=== PATIENT | male | born 1955 | race Caucasian/White ===

== ENCOUNTER 2018-01-26 06:29 | Day surgery (SDC) | payer MEDICARE ==
[~2018-01-26] VITALS: Ht 185.4 cm; Wt 112.0 kg
[~2018-01-26 06:29] MED LIST: ARIP1TAB87 PO; ATOR40TA49 PO; CIPR-9 PO; LAMI25TA3 PO; LEVO500T3 PO; LISI20 PO; LITH1TAB3 PO; METO25 PO; METO50 PO; REST30CA PO; TERB250
[2018-01-26] MEDS ORDERED: IOHEXOL 350 MG/ML 100 ML BTL (for Cath Lab) OTHER ONE (06:30)
[2018-01-26 07:14] VITALS: BP 159/91; PULSE 63; RESP 18; O2SAT 94
[2018-01-26] MEDS ORDERED: LITH300C2 PO (07:20)
[2018-01-26] MEDS ORDERED: ARIP1TAB13 PO (07:20)
[2018-01-26] MEDS ORDERED: VENTAER INH (07:20)
[2018-01-26] MEDS ORDERED: ATOR40TA16 PO (07:20)
[2018-01-26] MEDS ORDERED: ASPI-516 CHEW (07:20)
[2018-01-26] MEDS ORDERED: METO25TA3 PO (07:20)
[2018-01-26] MEDS ORDERED: FOSI10TA PO (07:20)
[2018-01-26] MEDS ORDERED: LITH150C PO (07:20)
[2018-01-26] MEDS ORDERED: METO50TA PO (07:20)
[2018-01-26] MEDS ORDERED: METF500T PO (07:20)
[2018-01-26] MEDS ORDERED: PHEN37.52 (07:20)
[2018-01-26] MEDS ORDERED: SODIUM CHLOR 0.9% 1000 ML INJ 1,000 ML IV SCH (07:30)
[2018-01-26] MEDS ORDERED: HEPARIN-NS/PF FLUSH BAG 2,000 ML IV FLUSH ONE (08:02)
[2018-01-26] MEDS ORDERED: LIDOCAINE HCL 1% PF 30 ML VIAL ONE (08:09)
[2018-01-26] MEDS ORDERED: MIDAZOLAM HCL 2 MG/2 ML VIAL ONE (08:11)
[2018-01-26] MEDS ORDERED: ONDANSETRON HCL 4 MG/2 ML VIAL IV PUSH PRN (09:15)
[2018-01-26] MEDS ORDERED: MISC INFORMATION XX ONE (09:15)
[2018-01-26] MEDS ORDERED: ATROPINE SULFATE 1 MG/ML VIAL IV PUSH PRN (09:15)
[2018-01-26] MEDS ORDERED: SODIUM CHLOR 0.9% 250 ML INJ 250 ML IV PRN (09:15)
--- NOTE | 2018-01-26 09:15 | CATHPROC ---
[facility] HIS Report Study Information Study Number Admission Scheduled Start Study Start [id number] Jan 26 2018 6:29AM 01/26/2018 Jan 26 2018 8:00AM [place] [facility]iac Catheterization Admit Source Facility Department Other [facility] - Automation Technologist Physician and Clinical Staff Initial Charles Mora Oracle Reports Developer Shailesh Rush RN Oracle Reports Developer Aaliyah Benitez BSN Recorder Corrie Hu,RT(R) Scrub Jenny Fisher,RT(R) Procedures Performed Procedure Location (Site) Vessel Name Coronary Angiograms LCA Left Coronary Coronary Angiograms RCA Right Coronary L Heart Cath Equipment Time Infant Babysitter Description Size Mfg Part Number Used/Scraped TRANSDUCER, TRUWAVE [id number] 08:12 FINN QUINTANILLA * Used W/STOCKCOCK *[id number] *[id number] [id number] *[id number] *[id number] 08:59 DAIG/[employer]. JASMIN MEDICAL ANGIOSEAL, FR6 VIP FR 6 Used *[id number] 08:12 [employer] PACK, CCL CUSTOM * Used *[id number] 08:12 [employer] PACER PEN, SKIN DUAL W/ RULER * Used *[id number] 08:12 [employer] SHEATH, FR6.5 PRELUDE 11CM FR 6.5 038ACT Used *[id number] 08:12 [employer] WIRE, 3MMJ .035 180CM 180CM Used *[id number] 08:12 NAMIC MANIFOLD, 4 PORT * Used *[id number] 08:12 NYCOMED OMNIPAQUE, 350 MG, 100ML 100ML [id number] Used [id number] 08:12 [employer] BLANKET,WARM AIR CCL * Used *[id number] History: Current Medications Medication Dosage/Unit Route Frequency Last Date/Time Taken ASA Beta Cristiano Statins (any) History: Allergies Allergy Reaction No Known Allergies History: Risk Factors Family History of Hypertension Dyslipidemia Premature CAD Yes Yes Yes Prior PCI Prior PCIDate Yes 01/10/2008 Diabetes Diabetes Therapy Yes Oral History: Stress Tests Stress or Imaging Studies Performed Yes Standard Exercise Stress Test No Stress Echo No Stress Test SPECT Stress Test SPECT Result Stress Test SPECT Ischemia Risk/Extent Yes Positive Intermediate Stress Test CMR No Cardiac CTA Coronary Calcium Score No No History: Other Current Smoker Method Packs a Day Years Used Pack Years Yes Cigarettes 2 43 86 Labs Hgb (g/dl) Hct (%) WBC (l/cumm) Platelets (thousands) 11.60-17.00 35.00-51.00 4.00-11.00 150.00-450.00 13.2 39.5 10.8 257 Glucose (mg/dl) BUN (mg/dl) Creatinine (mg/dl) BUN:Creatinine (1:x) 74.00-106.00 7.00-18.00 0.50-1.30 10.00-20.00 113 27 1.3 20.8 Na (meq/l) K (meq/l) 136.00-145.00 3.50-5.10 138 5.2 INR (PTT:PT) 0.90-1.10 0.9 CPK-MB (ng/ML) 0.50-3.60 Not Drawn Medication Medication Total Dose (Bolus/Oral) Medication Total Dosage/Unit 1% XYLOCAINE 20 mL VERSED 2 mg Medications (Bolus/Oral) Medication Time Given Dosage/Unit Administered By Reason VERSED 01/26/2018 8:24:35 AM 2 mg Shailesh Rush 2 mg VERSED given in lab by Shailesh Rush, RN in Left Hand via Peripheral IV. Ordered by Alfonso Atkins. 1% XYLOCAINE 01/26/2018 8:29:26 AM 20 mL Charles Atkins 20 mL 1% XYLOCAINE given in lab by Charles Atkins in Right Groin via Subcutaneous. Medication (Drip) Medication Time Given Dosage/Unit Concentration/Unit Diluent (ml) Solution IV Solutions 01/26/2018 8:00:47 AM 50 mL (IV) NaCl .9 IV Solutions given in lab by Aaliyah Benitez BSN in Left Hand via Peripheral IV. Pump/Drip Flow using NaCl .9. Initial Case Assessment Cardiovascular HR Rhythm NIBP Chest Pain 62 SR 125/79 0 Edema Present Skin color Skin Mild Normal Warm Dry Circulatory - Right Pulses Dorsalis Pedis Femoral 1 2 Scale (0,1,2,3,4,d) Circulatory - Left Pulses Dorsalis Pedis Femoral 1 2 Scale (0,1,2,3,4,d) Neurological State Oriented to time-place- Alert Moves all extremities person Respiration - General Respiration Rate SpO2 (%) (B/min) 8 96 Chronological Log Time Study Chronological Log 8:00:33 Patient arrived via Bed. 8:00:35 Patient Name, D.O.B, / Armband Verified By R.N. 8:00:36 Consent signed by the physician and the patient and verified by the Automation Technologist staff. 8:00:36 Pre-op and post- op instructions given; patient acknowledges understanding of instructions. 8:00:37 Verbal Stimulation=2 Physical Stimulation=2 Airway=2 Respiration=2 TOTAL=8. (0=absent, 1=li mited, 2=present) 8:00:38 Presedation assessment performed by Automation Technologist RN. 8:00:42 Patient has been NPO for More than 6Hrs. 8:00:43 Skin Breakdown- none per pt 8:00:44 Patient Warmer Placed on the Table. 8:00:46 Dee Prominences Protected 8:00:46 A # 20 IV was noted in the Hand (left). Grade = 0 8:00:47 IV Solutions given in lab by Aaliyah Benitez BSN in Left Hand via Peripheral IV. Pump/ Drip Flow using NaCl .9. 8:00:54 History and physical on the chart or being dictated. Assessment: Initial Case, HR=62 BPM, Rhythm=SR, CFMH=588/79 mmhg, Chest Pain=0, Edema=Mild, Col or=Normal, Skin = Warm, Dry Right Pulses: Fawad Ped=1, Femoral=2 8:00:55 Left Pulses: Fawad Ped=1, Femoral=2 Neurological: State=Alert, Ox3, ABRAHAM Respiration: Resp=8 B/min, SpO2=96 % Vitals capture started with the following parameters, Patient=Adult, Interval=5 min, Initial Pre wrrtr=105 mmHg, 8:03:43 Deflation Rate=5 mmHg, Cuff placed on Right Ankle 8:04:30 HR=69 bpm, RHFN=640/85 mmhg, SpO2=96.0 %, Resp=10 B/min 8:09:18 HR=62 bpm, CMCM=645/79 mmhg, SpO2=95.0 %, Resp=8 B/min 8:12:06 Reference ECG taken 8:12:57 Bilateral groins prepped with 2% chlorhexidine, and draped after a 3 minute waiting time. 8:14:21 HR=62 bpm, FKIL=091/83 mmhg, SpO2=96.0 %, Resp=18 B/min 8:14:48 MD arrived. 8:19:19 Pressure channel 1 zeroed. 8:19:21 HR=66 bpm, VXWL=607/79 mmhg, SpO2=97.0 %, Resp=18 B/min 8:24:22 HR=75 bpm, NUTZ=019/86 mmhg, SpO2=95.0 %, Resp=19 B/min Time Out. Correct patient, correct procedure, correct physician, power injector loaded, or not l oaded with contrast with 8:24:30 surgical team present. Time Out Concurred by MD and individual staff in procedure. 8:24:35 2 mg VERSED given in lab by Shailesh Rush RN in Left Hand via Peripheral IV. Ordered by Charles Metcalf. 8:24:53 Case Start 8:29:26 20 mL 1% XYLOCAINE given in lab by Charles Atkins in Right Groin via Subcutaneous. 8:29:27 HR=73 bpm, AIKF=293/72 mmhg, SpO2=93.0 %, Resp=24 B/min A JL 4.0 INFINITI CATHETER FR 6 was advanced over a wire. OMNIPAQUE, 350 MG, 100ML 100ML was use d for 8:30:45 injections. 8:34:20 HR=66 bpm, FKMC=940/82 mmhg, SpO2=94 %, Resp=20 B/min 8:37:35 Access site was Right Femoral Artery. 8:37:46 A SHEATH, FR6.5 PRELUDE 11CM FR 6.5 was advanced into the Fem Art (right) using the Percutan eous technique. 8:39:25 HR=66 bpm, WTRT=145/78 mmhg, SpO2=95.0 %, Resp=20 B/min 8:40:30 An injection in the Fem Art (right) was made through the SHEATH, FR6.5 PRELUDE 11CM FR 6.5. A JR 4.0 INFINITI CATHETER FR 6 was advanced over a wire. OMNIPAQUE, 350 MG, 100ML 100ML was use d for 8:41:00 injections. Recorded Pressure: LV, HR=72, Condition=Condition 1 8:43:05 (Left Ventricle) LV 124/10/14 Recorded Pressure: LV, Ao, HR=71, Condition=Condition 1 8:43:21 (Left Ventricle) LV 133/8/20, (Aorta) Ao 140/74/105 Recorded Pressure: Ao, HR=69, Condition=Condition 1 8:44:08 (Aorta) Ao 141/78/106 8:44:26 HR=70 bpm, SSZF=857/76 mmhg, SpO2=94.0 %, Resp=22 B/min After removing the current catheter a 3DRC INFINITI CATHETER FR 6 was advanced over a WIRE, 3MMJ .035 180CM 8:46:13 180CM. 8:48:27 The RCA was injected and visualized at various angles. OMNIPAQUE, 350 MG, 100ML 100ML used. After removing the current catheter a JL 4.0 INFINITI CATHETER FR 6 was advanced over a WIRE, 3M MJ .035 180CM 8:49:19 180CM. 8:49:29 HR=67 bpm, HAFU=070/76 mmhg, SpO2=93.0 %, Resp=20 B/min 8:51:57 The LCA was injected and visualized at various angles. OMNIPAQUE, 350 MG, 100ML 100ML used. 8:54:26 HR=67 bpm, SZBV=511/76 mmhg, SpO2=94.0 %, Resp=21 B/min 8:56:51 Catheter was removed 8:58:53 ANGIOSEAL, FR6 VIP FR 6 placement in the Fem Art (right) 8:59:27 HR=66 bpm, CFLH=872/83 mmhg, SpO2=94.0 %, Resp=19 B/min 9:01:19 Case End 9:02:26 No case complications noted. 9:02:29 Sterile dressing applied to site 9:03:09 Cine recording checked. 9:03:24 Holding Area notified. 9:03:31 Implantable Device card for angioseal placed in patient's chart. 9:03:41 A Left Heart Cath was performed. 9:04:28 HR=69 bpm, HTHG=263/75 mmhg, SpO2=96.0 %, Resp=25 B/min 9:08:43 Patient moved to stretcher End Study - Contrast Media Used In Study Contrast Total Opened (mL) Total Used (mL) Total Wasted (mL) Omnipaque 80 80 0 End Study - Maximum Contrast Load Max Contrast Load (mL) 430.8 End Study - Radiation Exposure Fluoro Time (minutes) 6.0 End Study - Patient Disposition Complications Transferred To Interventional Outcome No Outpatient Bed No attempt made
--- NOTE | 2018-01-26 09:29 | MA ---
cc: Charles Atkins MD DATE: 01/26/2018 PROCEDURE PERFORMED: Cardiac catheterization. PROCEDURE: The patient was prepped and draped in the usual fashion. A 6 sheath was inserted percutaneously into the right femoral artery. Coronary angiography was done with [place] preformed catheters. RESULTS: Aortic pressure was 140/78. Left ventricular end-diastolic pressure was 8. There was no gradient across the aortic valve. CORONARY ANGIOGRAPHY: Left main coronary was normal. Left anterior descending artery was essentially normal throughout its course, although there were some mild luminal irregularities. No significant stenoses were seen. The circumflex artery descended in the AV groove and was normal in its course. The second obtuse marginal branch demonstrated a total occlusion with collateralization from the left system. Right coronary was anatomically dominant and was totally occluded just after its takeoff with [id number] collaterals noted. CONCLUSIONS: The patient demonstrates coronary artery disease as described above. Medical management will be continued. ADDENDUM: At the end of the procedure, the arteriotomy was sealed with Angio-Seal technique. Charles Atkins MD DLW/DL , 09:15 AM , 09:28 AM
== END 2018-01-26 12:50 | disposition home or self-care (01) ==
LOC: HDIC 06:29 → HDOC 06:29
PROVIDERS: ATTEND Internal Medicine Cardiovascular Disease
DX: I25.10 Atherosclerotic heart disease of native coronary artery without angina pectoris (principal); I10 Essential (primary) hypertension; I70.90 Unspecified atherosclerosis; E11.21 Type 2 diabetes mellitus with diabetic nephropathy; F17.200 Nicotine dependence, unspecified, uncomplicated; Z79.82 Long term (current) use of aspirin; Z79.84 Long term (current) use of oral hypoglycemic drugs
CPT/HCPCS: 93458; 99152; 99153; C1760; C1769; C1893; G0269; J1644; J2250; Q9967